=== PATIENT | male | born 1990 | race Caucasian/White ===

== ENCOUNTER 2017-04-20 00:03 | Emergency (ER) | payer SELFPAY ==
[~2017-04-20] VITALS: Ht 193 cm; Wt 87.1 kg
--- NOTE | 2017-04-20 00:40 | PHYS DOC ---
Adult General Chief Complaint Chief Complaint: SHORTNESS OF BREATH HPI HPI Patient is a 26-year-old male with no significant past medical history who presents with complaints of trouble swallowing as well as swelling of the throat. Patient has had sick contacts with family members. No recent illnesses. Patient is a smoker. Questionable fevers. No rashes, no lesions. No chest pain or pain with inspiration. No neck pain. No complaints of headache. Review of Systems Review of Systems Constitutional: As per history of present illness HENT: As per history of present illness Respiratory: Denies cough or shortness of breath [] Cardiovascular: No chest pain GI: Denies abdominal pain, nausea, vomiting, Musculoskeletal: Denies back pain or joint pain [] Integument: Denies rash or skin lesions [] Neurologic: Denies headache, focal weakness or sensory changes [] All other systems were reviewed and found to be within normal limits, except as documented in this note. Current Medications Current Medications Current Medications Medications (Trade) Dose Ordered Sig/Kedar Start Time Stop Time Status Last Admin Dose Admin Methylprednisolone Sodium Succinate (SOLU-Medrol 125MG VIAL) 125 mg 1X ONCE 04/20/17 00:45 2 00:46 Morphine Sulfate (Morphine 2mg Syringe) 2 mg 1X ONCE 04/20/17 00:45 04/20/17 00:46 Allergies Allergies Allergies Coded Allergies Type Severity Reaction Last Updated Verified No Known Drug Allergies 04/20/17 No Physical Exam Physical Exam Constitutional: Well developed, well nourished, mild distress, non-toxic appearance. [] HENT: Normocephalic, atraumatic, bilateral external ears normal, oropharynx moist, no drooling, hot potato voice, prominent mucosal membranes, swelling right side of the pharynx, no exudates, , nose normal. [] Eyes: EOMI, conjunctiva normal, no discharge. [] Neck: Normal range of motion, no tenderness, supple, no stridor. No meningeal signs, no LAD Cardiovascular:Heart rate regular rhythm, no murmur, normal perfusion Lungs & Thorax: Bilateral breath sounds clear to auscultation no tachypnea Abdomen: Bowel sounds normal, soft, no tenderness Skin: Warm, dry, no erythema, no rash. [] Back: Normal range of motion Extremities: No tenderness, no DVT, ROM intact, no edema. [] Neurologic: Alert and oriented X 3, normal motor function, etc. voice, no focal deficits noted. [] Psychologic: Affect normal, judgement normal, mood normal. [] Current Patient Data Vital Signs Vital Signs Date Time Temp Pulse Resp B/P (MAP) Pulse Ox O2 Delivery O2 Flow Rate FiO2 04/20/17 00:17 97.8 110 20 132/82 (99) 98 Room Air EKG EKG [] Radiology/Procedures Radiology/Procedures Neck CT shows tonsillar abscess Discussed with Dr Dhara Corea (ENT) at [facility], recommends transfer to their ED and then have ENT service called. Aware of medication given (clinda) 0230 pt managing secretions, receiving antibiotics, agrees with transfer.[] Course & Med Decision Making Course & Med Decision Making Pertinent Labs and Imaging studies reviewed. (See chart for details) [] Dragon Disclaimer Dragon Disclaimer This electronic medical record was generated, in whole or in part, using a voice recognition dictation system. Departure Departure: Impression: Primary Impression: Tonsillar abscess Disposition: XFER SHT-TRM HOSP Condition: STABLE Bipin JORDAN MD Apr 20, 2017 00:40
[2017-04-20] MEDS ORDERED: methylPREDNISolone SOD SUCC PF 125 MG/2 ML VIAL. IV ONE (00:45)
[2017-04-20] MEDS ORDERED: CONTRAST GIVEN MC PRN (00:45)
[2017-04-20] MEDS ORDERED: MORPHINE SULFATE 2 MG/ML DISP.SYRIN. IV ONE (00:45)
[2017-04-20 00:57] LABS: BASO % 0 % (0-3); EOS # 0.1 x10^3/uL (0.0-0.7); EOS % 1 % (0-3); HEMATOCRIT 42.9 % (39.0-53.0); HEMOGLOBIN 14.8 g/dL (13.0-17.5); LYMPH # 0.8 x10^3/uL (1.0-4.8); LYMPH % 8 % (24-48); MEAN CORPUSCULAR HEMOGLOBIN 29 pg (25-35); MEAN CORPUSCULAR HGB CONC 35 g/dL (31-37); MEAN CORPUSCULAR VOLUME 84 fL (79-100); MONO % 10 % (0-9); NEUT # 8.4 x10^3uL (1.8-7.7); NEUT % 82 % (31-73); PLATELET COUNT 143 x10^3/uL (140-400); RED BLOOD COUNT 5.12 x10^6/uL (4.30-5.70); RED CELL DISTRIBUTION WIDTH 13.5 % (11.5-14.5); WHITE BLOOD COUNT 10.3 x10^3/uL (4.0-11.0)
[2017-04-20] MEDS ORDERED: IOHEXOL 300 MG/ML 75 ML VIAL. IV ONE (01:00)
[2017-04-20 01:05] LABS: CALCIUM 9.5 mg/dL (8.5-10.1); GFR 91.8; POTASSIUM 3.7 mmol/L (3.5-5.1)
[2017-04-20] MEDS ORDERED: KETOROLAC 15 MG/ML VIAL. IV ONE (01:15)
[2017-04-20] MEDS ORDERED: ONDANSETRON PF 4 MG/2 ML VIAL. IV ONE (01:15)
--- NOTE | 2017-04-20 01:39 | RAD ---
CT scan of the neck with contrast 04/20/2017 CLINICAL HISTORY: Peritonsillar abscess. TECHNIQUE: After the intravenous administration of 75 cc of Omnipaque 300, contiguous, 3 mm axial sections were obtained through the neck. One or more of the following individualized dose reduction techniques were utilized for this study: 1. Automated exposure control. 2. Adjustment of the mA and/or kV according to patient size. 3. Use of iterative reconstruction technique. Findings: The adenoid tonsils are enlarged. The palatine tonsils are enlarged, left greater than right. A heterogeneous somewhat rounded low-attenuation area is seen within the left palatine tonsil which measures 1.7 x 1.7 x 1.2 cm in craniocaudal, AP and transverse dimensions.This is consistent with a tonsillar abscess. No additional abnormal fluid collection is seen. The epiglottis and mucosal structures of the larynx are within normal limits. The parotid and submandibular glands and thyroid gland are within normal limits. Prominent likely reactive lymph nodes are seen within the suprahyoid neck, left greater than right. These measure 1 to 2.7 cm in size. IMPRESSION: 1.7 cm low-attenuation area is seen within the left palatine tonsil consistent with an abscess. Electronically signed by: Manoj Lara MD (04/20/2017 1:36 AM) [facility]
[2017-04-20] MEDS ORDERED: CLINDAMYCIN 600MG PREMIX 50 ML IV ONE (02:00)
[2017-04-20 02:52] VITALS: BP 141/78
[2017-04-20] MEDS ORDERED: IV NORMAL SALINE 1,000ML 1,000 ML IV ONE (03:30)
== END 2017-04-20 04:00 | disposition short-term general hospital (02) ==
LOC: ER 00:03
DX: J36 Peritonsillar abscess (principal)
CPT/HCPCS: 36415; 70491; 80048; 83605; 85025; 87040; 96361; 96365; 96375; 99285; J1885; J2270; J2405; J2930; J3490; Q9967; J7030

== ENCOUNTER 2017-04-21 23:26 | Emergency (ER) | payer SELFPAY ==
[~2017-04-21] VITALS: Ht 193 cm; Wt 87.1 kg
[2017-04-21] MEDS ORDERED: methylPREDNISolone SOD SUCC PF 125 MG/2 ML VIAL. ONE (23:42)
[2017-04-21] MEDS ORDERED: DEXAMETHASONE SOD PHOS 10 MG/ML VIAL ONE (23:45)
--- NOTE | 2017-04-21 23:48 | PHYS DOC ---
Past History Past Medical History: No Pertinent History Past Surgical History: No Surgical History Alcohol Use: None Drug Use: None Adult General Chief Complaint Chief Complaint: SORE THROAT HPI HPI Patient is a 26-year-old male presenting to the emergency department for evaluation of continued sore throat he says he feels that his pain is worse he is having more difficulty swallowing and breathing. He was seen 2 nights ago and was diagnosed with a left peritonsillar abscess and transfer to [facility] and he says that he was seen in the emergency department and an ENT came and drained his abscess under local anesthesia. He was prescribed an antibiotic steroid and pain medication and he says that the only Medication that he filled at the pharmacy was the Percocet as he says he did not have enough money for the other 2. Patient is in no obvious distress able to tolerate his secretions with no difficulty. He does not remember the name of the physician that he saw however according to the last records it appears to have been Dr. Liya Corea Review of Systems Review of Systems Constitutional: Denies fever or chills [] Eyes: Denies change in visual acuity, redness, or eye pain [] HENT: Denies nasal congestion. + sore throat [] Respiratory: Denies cough or shortness of breath [] Cardiovascular: No additional information not addressed in HPI [] GI: Denies abdominal pain, nausea, vomiting, bloody stools or diarrhea [] : Denies dysuria or hematuria [] Musculoskeletal: Denies back pain or joint pain [] Integument: Denies rash or skin lesions [] Neurologic: Denies headache, focal weakness or sensory changes [] All other systems were reviewed and found to be within normal limits, except as documented in this note. Current Medications Current Medications Current Medications Medications (Trade) Dose Ordered Sig/Kedar Start Time Stop Time Status Last Admin Dose Admin Dexamethasone Sodium Phosphate (Decadron) 10 mg STK-MED ONCE 04/21/17 23:45 04/21/17 23:46 DC Methylprednisolone Sodium Succinate (SOLU-Medrol 125MG VIAL) 125 mg STK-MED ONCE 04/21/17 23:42 04/21/17 23:43 DC Allergies Allergies Allergies Coded Allergies Type Severity Reaction Last Updated Verified No Known Drug Allergies 04/20/17 No Physical Exam Physical Exam Constitutional: Well developed, well nourished, no acute distress, non-toxic appearance. [] HENT: Normocephalic, atraumatic, bilateral external ears normal. Patient with swelling to left peritonsillar space with apparent horizontal incision. There is no spontaneous drainage and his uvula does appear deviated slightly towards the right. His airway is patent. Eyes: PERRLA, EOMI, conjunctiva normal, no discharge. [] Neck: Normal range of motion, no tenderness, supple, no stridor. [] Cardiovascular:Heart rate regular rhythm, no murmur [] Lungs & Thorax: Bilateral breath sounds clear to auscultation [] Abdomen: Bowel sounds normal, soft, no tenderness, no masses, no pulsatile masses. [] Skin: Warm, dry, no erythema, no rash. [] Back: No tenderness, no CVA tenderness. [] Extremities: No tenderness, no cyanosis, no clubbing, ROM intact, no edema. [] Neurologic: Alert and oriented X 3, normal motor function, normal sensory function, no focal deficits noted. [] EKG EKG [] Radiology/Procedures Radiology/Procedures CT scan of the neck with contrast 04/22/2017 CLINICAL HISTORY: History of left peritonsillar abscess post drainage 2 days ago with increased left-sided neck pain and swelling with difficulty swallowing. TECHNIQUE: After the intravenous administration of 75 cc of Omnipaque 300, contiguous, 3 mm axial sections were obtained through the neck. One or more of the following individualized dose reduction techniques were utilized for this study: 1. Automated exposure control. 2. Adjustment of the mA and/or kV according to patient size. 3. Use of iterative reconstruction technique. FINDINGS: Comparison study is dated 04/20/2017. Enlargement of the adenoid and palatine tonsils, left greater than right is seen. Within the left palatine tonsil an oval-shaped low-attenuation area is seen which measures 4.0 x 2.9 by 2.7 cm in craniocaudal, AP and transverse dimensions. This is consistent with an abscess. It has increased in size since the previous examination where it measured 1.7 cm in greatest diameter. Increased edema is seen within the adjacent soft tissues, particularly extending inferiorly. There is extrinsic mass effect upon the left aspect of the hypopharynx. The epiglottis is within normal limits. The mucosal structures of the larynx are within normal limits. The thyroid gland, submandibular glands and parotid glands are within normal limits. Prominent cervical lymph nodes are seen within the suprahyoid neck, left greater than right measure 1 to 2.7 cm in size. The osseous structures are unchanged. IMPRESSION: Interval increase in size of the abscess within the left palatine tonsil which now measures 4 cm in greatest diameter. Electronically signed by: Manoj Tello MD (04/22/2017 1:05 AM) [facility] DICTATED AND SIGNED BY: MANOJ TELLO MD DATE: 04/22/17 0056 Course & Med Decision Making Course & Med Decision Making Patient says that he feels worse I will check labs repeat CT give Decadron and reassess. He is refusing the Toradol and fentanyl for pain and swelling. Father is going to [place] to case picker his prescriptions. CT does show that abscess has doubled in size. We do not have ENT services here and in the best interest the patient I told him he should see an ENT and he was agreeable to transfer. I spoke to Dr. Corea at [facility] and she agreed to accept patient for transfer. Patient received Decadron, Toradol, Zosyn, fentanyl here. I recommended EMS transfer they could monitor him and monitor his IV. EMS would not allow girlfriend to go with them so patient refused EMS transfer and accepted the risks of and disability by not taking my recommendations and decided to drive private vehicle to [facility]. Patient transferred in stable condition told to go immediately to [facility]. Dragroque Disclaimer Jo-Ann Disclaimer This electronic medical record was generated, in whole or in part, using a voice recognition dictation system. Departure Departure: Impression: Primary Impression: Peritonsillar abscess Disposition: XF OTHER Condition: STABLE Referrals: PCP,NO (PCP) KRISTEN SALVADOR DO Apr 21, 2017 23:48
[2017-04-22 00:05] LABS: BASO # 0.1 x10^3/uL (0.0-0.2); BASO % 1 % (0-3); EOS % 0 % (0-3); HEMATOCRIT 38.7 % (39.0-53.0); HEMOGLOBIN 13.3 g/dL (13.0-17.5); LYMPH # 1.2 x10^3/uL (1.0-4.8); LYMPH % 14 % (24-48); MEAN CORPUSCULAR HEMOGLOBIN 29 pg (25-35); MEAN CORPUSCULAR HGB CONC 34 g/dL (31-37); MEAN CORPUSCULAR VOLUME 84 fL (79-100); MONO # 0.8 x10^3/uL (0.0-1.1); MONO % 9 % (0-9); NEUT # 6.2 x10^3uL (1.8-7.7); NEUT % 75 % (31-73); PLATELET COUNT 145 x10^3/uL (140-400); RED BLOOD COUNT 4.62 x10^6/uL (4.30-5.70); WHITE BLOOD COUNT 8.3 x10^3/uL (4.0-11.0)
[2017-04-22 00:14] LABS: CALCIUM 9.1 mg/dL (8.5-10.1); GFR 91.8; POTASSIUM 3.6 mmol/L (3.5-5.1)
[2017-04-22] MEDS ORDERED: DEXAMETHASONE SOD PHOS 10 MG/ML VIAL IV ONE (00:15)
[2017-04-22] MEDS ORDERED: CONTRAST GIVEN MC PRN (00:15)
[2017-04-22] MEDS ORDERED: KETOROLAC 30 MG/ML VIAL. IV ONE (00:30)
[2017-04-22] MEDS ORDERED: IOHEXOL 300 MG/ML 75 ML VIAL. IV ONE (00:30)
--- NOTE | 2017-04-22 01:08 | RAD ---
CT scan of the neck with contrast 04/22/2017 CLINICAL HISTORY: History of left peritonsillar abscess post drainage 2 days ago with increased left-sided neck pain and swelling with difficulty swallowing. TECHNIQUE: After the intravenous administration of 75 cc of Omnipaque 300, contiguous, 3 mm axial sections were obtained through the neck. One or more of the following individualized dose reduction techniques were utilized for this study: 1. Automated exposure control. 2. Adjustment of the mA and/or kV according to patient size. 3. Use of iterative reconstruction technique. FINDINGS: Comparison study is dated 04/20/2017. Enlargement of the adenoid and palatine tonsils, left greater than right is seen. Within the left palatine tonsil an oval-shaped low-attenuation area is seen which measures 4.0 x 2.9 by 2.7 cm in craniocaudal, AP and transverse dimensions. This is consistent with an abscess. It has increased in size since the previous examination where it measured 1.7 cm in greatest diameter. Increased edema is seen within the adjacent soft tissues, particularly extending inferiorly. There is extrinsic mass effect upon the left aspect of the hypopharynx. The epiglottis is within normal limits. The mucosal structures of the larynx are within normal limits. The thyroid gland, submandibular glands and parotid glands are within normal limits. Prominent cervical lymph nodes are seen within the suprahyoid neck, left greater than right measure 1 to 2.7 cm in size. The osseous structures are unchanged. IMPRESSION: Interval increase in size of the abscess within the left palatine tonsil which now measures 4 cm in greatest diameter. Electronically signed by: Manoj Lara MD (04/22/2017 1:05 AM) [facility]
[2017-04-22] MEDS ORDERED: IV NORMAL SALINE 1,000ML 1,000 ML IV ONE (02:00)
[2017-04-22] MEDS ORDERED: PIPERACILLIN/TAZOBACTAM 3.375 GM in IV NORMAL SALINE 50ML 50 ML IV ONE (02:30)
[2017-04-22] MEDS ORDERED: PIPERACILLIN/TAZO IV Push 3.375 GM VIAL. IVP ONE (03:00)
[2017-04-22 03:05] VITALS: BP 122/63
== END 2017-04-22 03:15 | disposition short-term general hospital (02) ==
LOC: ER 23:26
DX: J36 Peritonsillar abscess (principal)
CPT/HCPCS: 36415; 70491; 80048; 85025; 96361; 96374; 96375; 99285; J1100; J1885; J2543; J3010; Q9967; J7030